=== PATIENT | female | born 1995 | race Caucasian/White ===

== ENCOUNTER 2017-08-20 15:52 | Emergency (ER) | payer OTHER ==
--- NOTE | 2017-08-20 17:04 | ER Document Report ---
ED Medical Screen (RME) - General Mode of Arrival: Ambulatory Information source: Patient TRAVEL OUTSIDE OF THE [place] IN LAST 30 DAYS: No - HPI Patient complains to provider of: Vaginal bleeding Onset: Yesterday Associated Symptoms: Other - see notes above <YVAN MAGANA - Last Filed: 08/20/17 17:01> <JOSE CARLOS NARANJO - Last Filed: 08/20/17 21:12> - General Chief Complaint: Vaginal Bleeding Stated Complaint: VAGINAL BLEEDING Time Seen by Provider: 08/20/17 16:54 Notes: 21-year-old female () presents to the ED complaining of constant and worsening vaginal bleeding that started last night. Patient reports that she went to [facility] this morning where an ultrasound was performed which showed signs of , but no fetus. Patient states that they couldn't confirm an ectopic or if she wasn't as far a long in her . Patient has had 3 hcg tests performed. Patient's last menstrual period was 07/05/2017. ( YVAN MAGANA) - Related Data Allergies/Adverse Reactions: No Known Allergies Allergy (Verified 08/20/17 15:55) Home Medications: Current Home Medications No122/Iron/Folic Acid [ Multi Tablet] 1 each PO DAILY 08/20/17 [History] Past Medical History - General Information source: Patient Last Menstrual Period: 07/05/17 - Social History Chew tobacco use (# tins/day): No Frequency of alcohol use: None Drug Abuse: None Renal/ Medical History: Denies: Hx Peritoneal Dialysis Past Surgical History: Reports: Hx Tonsillectomy - and adenoids <YVAN MAGANA - Last Filed: 08/20/17 17:01> Review of Systems - Review of Systems Constitutional: No symptoms reported EENT: No symptoms reported Cardiovascular: No symptoms reported Respiratory: No symptoms reported Gastrointestinal: No symptoms reported Genitourinary: No symptoms reported Female Genitourinary: See HPI, Vaginal bleeding Musculoskeletal: No symptoms reported Skin: No symptoms reported Hematologic/Lymphatic: No symptoms reported Neurological/Psychological: No symptoms reported -: Yes All other systems reviewed and negative <YVAN MAGANA - Last Filed: 08/20/17 17:01> Physical Exam - General General appearance: Alert In distress: None - Respiratory Respiratory status: No respiratory distress Breath sounds: Normal - Cardiovascular Rhythm: Regular Heart sounds: Normal auscultation <YVAN MAGANA - Last Filed: 08/20/17 17:01> - Vital signs Vitals: Temp Pulse Resp BP Pulse Ox 98.0 F 88 16 115/58 L 98 08/20/17 15:58 08/20/17 15:58 08/20/17 15:58 08/20/17 15:58 08/20/17 15:58 Course <YVAN MAGANA - Last Filed: 08/20/17 17:01> - Laboratory Result Diagrams: 08/20/17 17:10 08/20/17 17:10 <JOSE CARLOS NARANJO - Last Filed: 08/20/17 21:12> - Re-evaluation Re-evalutation: 08/20/17 21:11 I personally performed the services described in the documentation, reviewed and edited the documentation which was dictated to the scribe in my presence, and it accurately records my words and actions. (JOSE CARLOS NARANJO) - Vital Signs Vital signs: Temp Pulse Resp BP Pulse Ox 98.9 F 64 16 110/69 100 08/20/17 19:44 08/20/17 19:44 08/20/17 19:44 08/20/17 19:44 08/20/17 19:44 - Laboratory Laboratory results interpreted by me: 08/20/17 08/20/17 17:10 17:10 Glucose 63 L Albumin 5.1 H Beta HCG, Quant 2181.90 H Urine Protein 100 H Urine Blood LARGE H Doctor's Discharge <YVAN MAGANA - Last Filed: 08/20/17 17:01> <JOSE CARLOS NARANJO - Last Filed: 08/20/17 21:12> - Discharge Clinical Impression: Miscarriage Condition: Stable Disposition: HOME, SELF-CARE Additional Instructions: Miscarriage You have had a miscarriage (medically called a "spontaneous "). The miscarriage occurred because the fetus did not develop normally. There is nothing you did to cause it, and nothing you could have done to prevent it. About one in four ends in miscarriage. You should rest in bed for two or three days. As there is some risk of infection of the uterus, you should not have intercourse for one week (or until okayed by your physician). Please see your YARD DEMURR[employer] CLERK on Wednesday to recheck your hormone level. You might not have a period for six to eight weeks. You should not become again for at least three months -- the uterus requires time to get back to normal. Call the doctor or return for re-examination if there is heavy or persistent vaginal bleeding, fever, foul discharge, continued cramping pains, or abdominal pain. Referrals: CASSIE LOPEZ MD [ACTIVE PROVISIONAL STAFF] - 08/23/17 Scribe Documentation - Scribe Written by Le:: Le Dos Santos, 08/20/2017 1704 acting as scribe for :: Long <VYAN MAGANA - Last Filed: 08/20/17 17:01>
[2017-08-20 17:39] LABS: ABSOLUTE EOSINOPHILS # (AUTO) 0.1 10^3/uL (0.0-0.6); ABSOLUTE MONOCYTES (AUTO) 0.5 10^3/uL (0.1-1.4); BASOPHILS % (AUTO) 0.4 % (0-2); EOSINOPHILS % (AUTO) 0.9 % (0-6); HEMATOCRIT 40.1 % (36.0-47.0); HEMOGLOBIN 13.5 g/dL (12.0-15.5); HGB HCT DIFFERENCE 0.4; MEAN CORPUSCULAR HEMOGLOBIN 30.7 pg (27.0-33.4); MEAN CORPUSCULAR HGB CONC 33.8 g/dL (32.0-36.0); MEAN CORPUSCULAR VOLUME 91 fl (80-97); MONOCYTES % (AUTO) 8.3 % (3-13); RED BLOOD COUNT 4.42 10^6/uL (3.72-5.28); RED CELL DISTRIBUTION WIDTH 12.4 % (11.5-14.0); SEGMENTED NEUTROPHILS % (AUTO) 60.4 % (42-78); WHITE BLOOD COUNT 6.6 10^3/uL (4.0-10.5)
[2017-08-20 17:52] LABS: APPEARANCE,URINE CLEAR; BILIRUBIN,URINE NEGATIVE (NEGATIVE); GLUCOSE, URINE NEGATIVE (NEGATIVE); KETONES,URINE NEGATIVE (NEGATIVE); LEUKOCYTE ESTERASE,URINE NEGATIVE (NEGATIVE); NITRITE,URINE NEGATIVE (NEGATIVE); PROTEIN,URINE 100 mg/dL (NEGATIVE); URINE SPECIFIC GRAVITY 1.021; UROBILINOGEN,URINE NEGATIVE mg/dL (<2.0)
[2017-08-20 17:56] LABS: ALANINE AMINOTRANSFERASE 33 U/L (9-52); ALBUMIN 5.1 g/dL (3.5-5.0); ALKALINE PHOSPHATASE 57 U/L (38-126); ANION GAP 12 (5-19); ASPARTATE AMINO TRANSFERASE 21 U/L (14-36); BILIRUBIN,DIRECT 0.4 mg/dL (0.0-0.4); BILIRUBIN,TOTAL 0.8 mg/dL (0.2-1.3); BLOOD UREA NITROGEN 12 mg/dL (7-20); CALCIUM 9.7 mg/dL (8.4-10.2); CARBON DIOXIDE 29 mmol/L (22-30); CHLORIDE 103 mmol/L (98-107); CREATININE RESULT 0.76 mg/dL (0.52-1.25); GLUCOSE 63 mg/dL (75-110); POTASSIUM 3.8 mmol/L (3.6-5.0); SODIUM 143.6 mmol/L (137-145); TOTAL PROTEIN 7.9 g/dL (6.3-8.2)
[2017-08-20 18:01] LABS: RBC,URINE >100 /HPF
--- NOTE | 2017-08-20 18:56 | ER Document Report ---
ED General - General Mode of Arrival: Ambulatory Information source: Patient TRAVEL OUTSIDE OF THE [place] IN LAST 30 DAYS: No <KING SHEIKH - Last Filed: 08/20/17 22:30> <DORON ORTIZ - Last Filed: 08/20/17 22:39> - General Chief Complaint: Vaginal Bleeding Stated Complaint: VAGINAL BLEEDING Time Seen by Provider: 08/20/17 16:54 Notes: Patient is a 21 year old female presenting to the emergency department for constant and worsening vaginal bleeding and abdominal cramps onset last night. Patient states that she is 7 weeks which was verified by her PCP. Patient states that she went to [facility] this morning and had a ultrasound performed where they saw the sac but not the fetus. Patient states that her bleeding and cramping has worsened since her visit at [facility]. Patient states that she also has had blood clots. Patient believes that she could be having ectopic . Patient is . (KING SHEIKH) Correction to examination, patient was seen at [facility] this morning for pain, bleeding did not start [place] [facility] [place] (DORON ORTIZ) - Related Data Allergies/Adverse Reactions: No Known Allergies Allergy (Verified 08/20/17 15:55) Home Medications: Current Home Medications No122/Iron/Folic Acid [ Multi Tablet] 1 each PO DAILY 08/20/17 [History] Past Medical History - General Information source: Patient Last Menstrual Period: 07/05/17 - Social History Smoking Status: Unknown if Ever Smoked Chew tobacco use (# tins/day): No Frequency of alcohol use: None Drug Abuse: None Family History: None Patient has suicidal ideation: No Patient has homicidal ideation: No Past Surgical History: Reports: Hx Tonsillectomy - and adenoids <KING SHEIKH - Last Filed: 08/20/17 22:30> Review of Systems - Review of Systems Constitutional: No symptoms reported EENT: No symptoms reported Cardiovascular: No symptoms reported Respiratory: No symptoms reported Gastrointestinal: See HPI, Abdominal pain Genitourinary: No symptoms reported Female Genitourinary: See HPI, , Vaginal bleeding Musculoskeletal: No symptoms reported Skin: No symptoms reported Hematologic/Lymphatic: No symptoms reported Neurological/Psychological: No symptoms reported -: Yes All other systems reviewed and negative <KING SHEIKH - Last Filed: 08/20/17 22:30> Physical Exam <KING SHEIKH - Last Filed: 08/20/17 22:30> <DORON ORTIZ - Last Filed: 08/20/17 22:39> - Vital signs Vitals: Temp Pulse Resp BP Pulse Ox 98.0 F 88 16 115/58 L 98 08/20/17 15:58 08/20/17 15:58 08/20/17 15:58 08/20/17 15:58 08/20/17 15:58 - Notes Notes: GENERAL: Alert, interacts well. No acute distress. HEAD: Normocephalic, atraumatic. EYES: Pupils equal, round, and reactive to light. Extraocular movements intact. ENT: Oral mucosa moist, tongue midline. NECK: Full range of motion. Supple. Trachea midline. LUNGS: Clear to auscultation bilaterally, no wheezes, rales, or rhonchi. No respiratory distress. HEART: Regular rate and rhythm. No murmurs, gallops, or rubs. ABDOMEN: Soft, mild tenderness to palpation across the lower abdomen. Non- distended. Bowel sounds present in all 4 quadrants. EXTREMITIES: Moves all 4 extremities spontaneously. No edema, radial and dorsalis pedis pulses 2/4 bilaterally. No cyanosis. NEUROLOGICAL: Alert and oriented x3. Normal speech. PSYCH: Crying when informed of miscarriage. SKIN: Warm, dry, normal turgor. No rashes or lesions noted. (KING SHEIHK) Course - Laboratory Result Diagrams: 08/20/17 17:10 08/20/17 17:10 <KING SHEIKH - Last Filed: 08/20/17 22:30> - Laboratory Result Diagrams: 08/20/17 17:10 08/20/17 17:10 <DORON ORTIZ - Last Filed: 08/20/17 22:39> - Re-evaluation Re-evalutation: 08/20/17 19:02 CBC unremarkable, chemistries unremarkable, beta-hCG is 2181.9, patient has large blood in the urine and many squames epithelial cells, this is contaminant from her vaginal bleeding. [facility] from [facility] was reviewed and showed intrauterine gestational sac without yolk sac or pole, estimation by gestational age is 5 weeks and 2 days, given this finding on the ultrasound, her dates that put her at approximately 7 weeks in the fact that she has now developed heavy vaginal bleeding I suspect patient is having a miscarriage. Patient was offered a repeat ultrasound or follow-up with her OB/ [employer]ING [employer] in 2-3 days to have her quant repeated. Patient chooses to decline the transvaginal ultrasound at this time and be discharged home, follow up with OB as an outpatient. Patient will be discharged to home and she has an OB appointment on Wednesday. (DORON ORTIZ) - Vital Signs Vital signs: Temp Pulse Resp BP Pulse Ox 98.9 F 64 16 110/69 100 08/20/17 19:44 08/20/17 19:44 08/20/17 19:44 08/20/17 19:44 08/20/17 19:44 - Laboratory Laboratory results interpreted by me: 08/20/17 08/20/17 17:10 17:10 Glucose 63 L Albumin 5.1 H Beta HCG, Quant 2181.90 H Urine Protein 100 H Urine Blood LARGE H Discharge <KING SHEIKH - Last Filed: 08/20/17 22:30> <DORON ORTIZ - Last Filed: 08/20/17 22:39> - Discharge Clinical Impression: Miscarriage Condition: Stable Disposition: HOME, SELF-CARE Additional Instructions: Miscarriage You have had a miscarriage (medically called a "spontaneous "). The miscarriage occurred because the fetus did not develop normally. There is nothing you did to cause it, and nothing you could have done to prevent it. About one in four ends in miscarriage. You should rest in bed for two or three days. As there is some risk of infection of the uterus, you should not have intercourse for one week (or until okayed by your physician). Please see your ATMOSPHERIC CHEMIST on Wednesday to recheck your hormone level. You might not have a period for six to eight weeks. You should not become again for at least three months -- the uterus requires time to get back to normal. Call the doctor or return for re-examination if there is heavy or persistent vaginal bleeding, fever, foul discharge, continued cramping pains, or abdominal pain. Referrals: CASSIE LOPEZ MD [ACTIVE PROVISIONAL STAFF] - 08/23/17 Scribe Attestation: 08/20/17 22:39 I personally performed the services described in the documentation, reviewed and edited the documentation which was dictated to the scribe in my presence, and it accurately records my words and actions. (DORON ORTIZ) Daniellaibe Documentation - Scribe Written by Le:: Le Mendez, 08/20/2017 acting as scribe for :: 19:23 <KING SHEIKH - Last Filed: 08/20/17 22:30>
[2017-08-20 19:45] VITALS: BP 110/69
== END 2017-08-20 19:48 | disposition home or self-care (01) ==
LOC: ER 15:52
DX: O03.9 Complete or unspecified spontaneous abortion without complication (principal)
CPT/HCPCS: 36415; 80053; 81001; 84702; 85025; 99284

== ENCOUNTER 2020-05-30 20:05 | Emergency (ER) | END 2020-05-30 21:36 | disposition left against medical advice (07) | LOC: ER 20:05 | DX: Z53.21 Procedure and treatment not carried out due to patient leaving prior to being seen by health care provider (principal); K62.5 Hemorrhage of anus and rectum ==